=== PATIENT | female | born 2000 | race Asian ===

== ENCOUNTER 2025-01-14 22:39 | Emergency (ER) | payer OTHER, SELFPAY ==
[2025-01-14 22:41] VITALS: BP 150/97
[2025-01-14 23:30] VITALS: BMI 23.0
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
== END 2025-01-15 00:26 | disposition home or self-care (01) ==
LOC: EMR 22:39
PROVIDERS: EMERGENCY PHYSICIAN Emergency Medicine; FAMILY PHYSICIAN Internal Medicine
DX: S62.614A Displaced fracture of proximal phalanx of right ring finger, initial encounter for closed fracture (principal); V89.2XXA Person injured in unspecified motor-vehicle accident, traffic, initial encounter
CPT/HCPCS: 99283; 29130; 73140